=== PATIENT | male | born 1940 | race Caucasian/White ===

== ENCOUNTER 2020-06-04 12:39 | Emergency (ER) | payer MEDICARE, OTHER, SELFPAY ==
[2020-06-04] VITALS (40 sets, daily range): BP systolic 108–152; BP diastolic 69–109; PULSE 99–134; RESP 12–16; TEMP 37; O2SAT 93–109; BMI 32.0
--- NOTE | 2020-06-04 13:00 | PC.NURSE ---
patient has a history of anesthesia related mental status changes. On may 18 he had surgery on his left elbow and wrist under general anesthesia. He emerged from anesthesia and had acute hullucinations and confusion. He also experiences generalized weakness. He was hospitalized in [facility] for this from may 25 until this last monday. today he was sent to us from [facility] because his dr that performed the procedure recommended that he come to the ED and get checked out for a DVT in left arm. he has a history of stage 3 kyndey failure, chronic atrial fibrillation
[2020-06-04 13:10] LABS: Add Manual Diff / Slide Review NO; Basophils Absolute Auto 100 /uL (0-100); Basophils Percent Auto 0.6 % (0-2); Eosinophils Absolute Auto 0 /uL (0-450); Eosinophils Percent Auto 0.1 % (2-4); Hematocrit 36.4 % (41-53); Hemoglobin 11.9 g/dL (13.5-17.5); Lymphocytes Absolute Auto 500 /uL (1100-4500); Lymphocytes Percent Auto 3.5 % (25-40); Mean Corpuscular HGB Conc 32.6 % (30-36); Mean Corpuscular Hemoglobin 33.2 PG (26-34); Mean Corpuscular Volume 101.6 fL (80-100); Monocytes Absolute Auto 900 /uL (0-900); Monocytes Percent Auto 6.4 % (3-14); Neutrophils Absolute Auto 12700 /uL (1500-7000); Neutrophils Percent Auto 89.4 % (50-75); Platelet Count 173 X10^3/uL (150-400); Red Blood Cell Count 3.59 X10^6/uL (4.5-5.9); Red Cell Distribution Width 17.2 % (11.6-14.8); White Blood Cell Count 14.2 X10^3/uL (4.5-11.0)
[2020-06-04 13:19] LABS: Alanine Aminotransferase 35 IU/L (<50); Albumin 3.6 g/dL (3.5-5.0); Albumin Globulin Ratio 1.2 (1.0-2.8); Alkaline Phosphatase 59 U/L (38-126); Aspartate Aminotransferase 26 IU/L (17-59); BUN Creatinine Ratio 24.5 (6-22); Bilirubin Total 1.4 mg/dL (0.2-1.3); Blood Urea Nitrogen 25 mg/dL (9-20); Calcium 9.3 mg/dL (8.4-10.2); Carbon Dioxide 25 mmol/L (22-32); Chloride 98 mmol/L (98-107); Estimated Glomerular Filt Rate > 60.0 mL/min (>60); Glucose 186 mg/dL (80-110); HEMOLYSIS < 15 (0-50); Potassium 4.7 mmol/L (3.4-5.1); Sodium 130 mmol/L (137-145); Total Protein 6.6 g/dL (6.3-8.2)
--- NOTE | 2020-06-04 13:32 | ED_ITS ---
HPI - Extremity Injury (Upper) General Chief Complaint: Extremity Injury, Upper Stated Complaint: Possible DVT Left arm/Increased confusion Time Seen by Provider: 06/04/20 13:31 Source: EMS Mode of arrival: Wheelchair Limitations: altered mental status History of Present Illness HPI narrative: The patient arrives by EMS from [facility]. There is concerned about redness and swelling to the left arm. He underwent left cubital tunnel, and carpal tunnel surgery about 1 month ago. After discharge he was matthieu dmitted with hallucinations. He was it [facility] for extended period time, before being transferred to [facility]. He is currently being treated with Augmentin for aspiration pneumonia. He has the pain and swelling left arm. He does not have chest pain. He has mild dyspnea. He does not have a productive cough. He denies chronic lung problems. He says he does have heart problems. The pain and swelling left upper arm, he tells me has been present since he was postop. The nurse at the [facility] noted warmth in the arm. There is ongoing edema. She was concerned about DVT. It is noted is tachycardic. He has a history of AFib. Related Data Allergies Allergy/AdvReac Type Severity Reaction Status Date / Time general an AdvReac Uncoded 06/04/20 14:08 Review of Systems Constitutional Constitutional: Denies chills, Reports fatigue, Denies fever(s) and Denies headache(s) ENT Ears, Nose, Mouth, and Throat: Denies dizziness and Denies headache(s) Cardiovascular Cardiovascular: Denies chest pain and Reports rapid heart rate Respiratory Respiratory: Denies cough Gastrointestinal Gastrointestinal: Denies abdominal pain, Denies change in bowel habits, Denies diarrhea, Denies nausea and Denies vomiting Musculoskeletal Comments: Left arm pain and swelling. See HPI. Neurologic Neurologic: Reports confusion, Denies dizziness and Denies headache(s) Psychiatric Psychiatric: Reports confusion Comments: The patient is a poor historian. No additional history or RS information could be obtained. Endocrine Endocrine: Reports fatigue Patient History Medical History (Updated 06/04/20 @ 19:09 by Beau Duncan MD) Atrial fibrillation Surgical History (Updated 06/04/20 @ 19:09 by Beau Duncan MD) H/O elbow surgery History of carpal tunnel surgery of left wrist Social History Smoking Status: Former smoker Smoking Status: Former smoker tobacco type: cigarettes alcohol intake frequency: holidays/special occasions only Substance Use Type: does not use Exam Initial Vital Signs Initial Vital Signs: Vital Signs Temperature 98.6 F 06/04/20 12:47 Pulse Rate 109 H 06/04/20 12:47 Respiratory Rate 14 06/04/20 12:47 Blood Pressure 120/75 06/04/20 12:47 Pulse Oximetry 109 H 06/04/20 12:47 Const General: cooperative, disheveled and frail appearing Orientation: Orientation (Oriented to person and place.) [facility] Head: normocephalic and atraumatic Mouth: oral mucosae normal Eyes General: appearance normal, both eyes and all related structures Eyelids: eyelids normal Conjunctivae: conjunctivae normal Sclera: sclerae normal Pupils: PERRL EOM: EOM intact bilaterally Neck Neck: No JVD Resp Effort & Inspection: normal respiratory effort and able to speak in complete sentences Auscultation: clear to auscultation bilaterally, no rales, no rhonchi and no wheezes Cardio Other: Tachycardic. Irregular. Normal S1-S2. No murmur. GI Inspection: non-distended Palpation: soft, no hepatosplenomegaly, No guarding, No pulsatile mass and No tender Auscultation: normal bowel sounds Back/Spine/Pelvis Back: No back tenderness Skin Other: Pallor. No rashes. Neuro Other: No motor doses. Extrem Other: Significant edema to the left upper arm. Decreased motion the left shoulder and left elbow, suggesting a contracture. Full range of motion left wrist. Atrophy in the left hand. The left radial pulse is normal. Psych Appearance: disheveled Speech and Movement: slowed movement Course Course Course Narrative: The patient was given Cardizem and metoprolol for his AFib. Is unclear if he took his sotalol earlier today. His heart rate in the 90s at discharge. He has no dyspnea, little cough. He is on Augmentin for pneumonia. The left arm is concerning for contracture at the elbow. I discussed the situation with his , she should contact his surgeon regarding the contracture. There is no evidence of DVT on ultrasound. Orders Ordered: ED Orders 06/04/20 12:40 CMP [Comprehensive Metabolic Panel] Stat Complete Blood Count AUTO DIFF Stat Procalcitonin Stat 06/04/20 12:45 D Dimer Stat 06/04/20 13:58 Lactate (Lactic Acid) Stat 06/04/20 14:04 US periph venous up extrem lt Stat XR chest 1V Stat Discontinued Medications Diltiazem HCl (Diltiazem 5 Mg/Ml Sdv) 5 mg IV NOW ONE Stop: 06/04/20 17:55 Last Admin: 06/04/20 17:58 Dose: 5 mg Documented by: VALENTIN Metoprolol Tartrate (Metoprolol Ir 25 Mg Tablet) 25 mg PO NOW ONE Stop: 06/04/20 17:16 Last Admin: 06/04/20 17:19 Dose: 25 mg Documented by: VALENTIN Morphine Sulfate (Morphine 4 Mg/Ml Inj) 2 mg IV NOW ONE Stop: 06/04/20 14:03 Last Admin: 06/04/20 14:09 Dose: 2 mg Documented by: VALENTIN Vital Signs Vital signs: Vital Signs - 8 hr 06/04/20 12:47 06/04/20 12:53 06/04/20 13:00 Temperature 98.6 F Pulse Rate 109 H 123 H 114 H Respiratory Rate 14 Blood Pressure 120/75 108/78 Pulse Oximetry 109 H 96 96 06/04/20 13:30 06/04/20 13:40 06/04/20 13:50 Temperature Pulse Rate 115 H 120 H 115 H Respiratory Rate Blood Pressure 132/84 134/80 135/77 Pulse Oximetry 97 97 97 06/04/20 14:00 06/04/20 14:10 06/04/20 14:30 Temperature Pulse Rate 115 H 113 H 122 H Respiratory Rate Blood Pressure 142/69 H 136/73 Pulse Oximetry 97 98 06/04/20 15:00 06/04/20 15:30 06/04/20 15:33 Temperature Pulse Rate 126 H 123 H 123 H Respiratory Rate Blood Pressure 133/73 Pulse Oximetry 99 99 06/04/20 15:40 06/04/20 15:50 06/04/20 16:00 Temperature Pulse Rate 134 H 127 H 124 H Respiratory Rate Blood Pressure 138/77 129/104 H 122/100 H Pulse Oximetry 99 99 99 06/04/20 16:10 06/04/20 16:20 06/04/20 16:30 Temperature Pulse Rate 126 H 126 H 126 H Respiratory Rate Blood Pressure 127/94 H 121/96 H 131/105 H Pulse Oximetry 99 99 98 06/04/20 16:40 06/04/20 17:00 06/04/20 17:10 Temperature Pulse Rate 128 H 124 H 124 H Respiratory Rate Blood Pressure 126/109 H 124/86 135/92 H Pulse Oximetry 98 100 100 06/04/20 17:20 06/04/20 17:30 06/04/20 17:40 Temperature Pulse Rate 120 H 118 H 120 H Respiratory Rate Blood Pressure 129/93 H 120/94 H 152/98 H Pulse Oximetry 100 06/04/20 17:50 06/04/20 17:58 06/04/20 18:00 Temperature Pulse Rate 124 H 125 H 121 H Respiratory Rate Blood Pressure 118/83 118/83 124/95 H Pulse Oximetry 94 06/04/20 18:10 06/04/20 18:18 06/04/20 18:20 Temperature Pulse Rate 99 H 101 H Respiratory Rate 12 Blood Pressure 137/90 137/90 131/95 H Pulse Oximetry 94 93 06/04/20 18:30 06/04/20 18:50 06/04/20 19:00 Temperature Pulse Rate 107 H 101 H 102 H Respiratory Rate Blood Pressure 129/105 H 132/96 H 121/95 H Pulse Oximetry 93 94 93 MDM - Extremity Injury (Upper) Lab Data Result diagrams: 06/04/20 12:40 06/04/20 12:40 Labs: Lab Results 06/04/20 06/04/20 06/04/20 Range/Units 12:40 12:40 12:40 WBC 14.2 H (4.5-11.0) X10^3/uL RBC 3.59 L (4.5-5.9) X10^6/uL Hgb 11.9 L (13.5-17.5) g/dL Hct 36.4 L (41-53) % MCV 101.6 H (80-100) fL MCH 33.2 (26-34) PG MCHC 32.6 (30-36) % RDW 17.2 H (11.6-14.8) % Plt Count 173 (150-400) X10^3/uL Neut % (Auto) 89.4 H (50-75) % Lymph % (Auto) 3.5 L (25-40) % [place] % (Auto) 6.4 (3-14) % Eos % (Auto) 0.1 L (2-4) % Baso % (Auto) 0.6 (0-2) % Neut # (Auto) 16050 H (4553-3373) /uL Lymph # (Auto) 500 L (3761-3711) /uL [place] # (Auto) 900 (0-900) /uL Eos # (Auto) 0 (0-450) /uL Baso # (Auto) 100 (0-100) /uL D-Dimer (<230) ng/mL Sodium 130 L (137-145) mmol/L Potassium 4.7 (3.4-5.1) mmol/L Chloride 98 (98-107) mmol/L Carbon Dioxide 25 (22-32) mmol/L BUN 25 H (9-20) mg/dL Creatinine 1.02 (0.66-1.25) mg/dL Estimated GFR > 60.0 (>60) mL/min BUN/Creatinine Ratio 24.5 H (6-22) Glucose 186 H (80-110) mg/dL Lactate (0.7-2.1) mmol/L Calcium 9.3 (8.4-10.2) mg/dL Total Bilirubin 1.4 H (0.2-1.3) mg/dL AST 26 (17-59) IU/L ALT 35 (<50) IU/L Alkaline Phosphatase 59 (38-126) U/L Total Protein 6.6 (6.3-8.2) g/dL Albumin 3.6 (3.5-5.0) g/dL Globulin 3.0 (1.7-4.1) g/dL Albumin/Globulin Ratio 1.2 (1.0-2.8) Procalcitonin 0.44 (<0.5) ng/mL 06/04/20 06/04/20 Range/Units 12:45 13:58 WBC (4.5-11.0) X10^3/uL RBC (4.5-5.9) X10^6/uL Hgb (13.5-17.5) g/dL Hct (41-53) % MCV (80-100) fL MCH (26-34) PG MCHC (30-36) % RDW (11.6-14.8) % Plt Count (150-400) X10^3/uL Neut % (Auto) (50-75) % Lymph % (Auto) (25-40) % Assumption % (Auto) (3-14) % Eos % (Auto) (2-4) % Baso % (Auto) (0-2) % Neut # (Auto) (9538-8359) /uL Lymph # (Auto) (5558-4232) /uL Assumption # (Auto) (0-900) /uL Eos # (Auto) (0-450) /uL Baso # (Auto) (0-100) /uL D-Dimer 817 H (<230) ng/mL Sodium (137-145) mmol/L Potassium (3.4-5.1) mmol/L Chloride (98-107) mmol/L Carbon Dioxide (22-32) mmol/L BUN (9-20) mg/dL Creatinine (0.66-1.25) mg/dL Estimated GFR (>60) mL/min BUN/Creatinine Ratio (6-22) Glucose (80-110) mg/dL Lactate 1.2 (0.7-2.1) mmol/L Calcium (8.4-10.2) mg/dL Total Bilirubin (0.2-1.3) mg/dL AST (17-59) IU/L ALT (<50) IU/L Alkaline Phosphatase (38-126) U/L Total Protein (6.3-8.2) g/dL Albumin (3.5-5.0) g/dL Globulin (1.7-4.1) g/dL Albumin/Globulin Ratio (1.0-2.8) Procalcitonin (<0.5) ng/mL Imaging Data Left upper extremity ultrasound: Radiologist's Impression: [address] [id number] ReportSigned Patient: Teresa Phillips#: [id number]: 8Acct:[id number]/Sex: 80 / MDate of Service: 06/04/20Loc: EDAccession Number: [id number] Procedure: US periph venous up extrem lt Ordering Provider: Beau Duncan MD PROCEDURE: US PERIPH VENOUS UP EXTREM LT INDICATIONS: EDEMA TECHNIQUE: Real-time imaging, as well as color and pulse Doppler interrogation, was performed of the left upper extremity deep veins from the inferior neck to the antecubital fossa. COMPARISON: None. FINDINGS: The internal jugular vein, visualized portions of the subclavian vein, axillary, and brachial veins are free of intraluminal thrombus. Where physically possible, the veins are normally compressible. Color and pulse Doppler demonstrate normal intraluminal flow, with expected phasicity and pulsatility. Additional scanning of the cephalic and basilic veins of the superficial system demonstrate normal compressibility, without thrombus. IMPRESSION: No sonographic evidence of deep VT in the left upper extremity. Dictated by: Naun López M.D. on 06/04/2020 at 14:43 Approved by: Naun López M.D. on 06/04/2020 at 14:43 Chest x-ray: Radiologist's Impression: [address] [id number] ReportSigned Patient: Jose Ramon PhillipsMR#: [id number]: 8Acct:[id number]/Sex: 80 / MDate of Service: 06/04/20Loc: EDAccession Number: [id number] Procedure: XR chest 1V Ordering Provider: Beau Duncan MD PROCEDURE: XR CHEST 1V INDICATIONS: Dyspnea. Recent dx of pneumonia TECHNIQUE: One view of the chest was acquired. COMPARISON: None. FINDINGS: Surgical changes and devices: None. Lungs and pleura: Lungs are clear. No pleural effusions or pneumothorax. Mediastinum: Mediastinal contours appear normal. Heart size is normal. Aorta is tortuous. Bones and chest wall: No suspicious bony lesions. Overlying soft tissues appear unremarkable. IMPRESSION: 1. No acute cardiopulmonary disease. 2. There is a density projecting to the left aspect of the spine above the left hemidiaphragm, which may be related to the silhouette from the tortuous aorta. A lateral view of chest or chest CT is recommended. Dictated by: Irlanda Sheehan M.D. on 06/04/2020 at 14:22 Approved by: Irlanda Sheehan M.D. on 06/04/2020 at 14:24 ECG Data Attestation: I personally reviewed and interpreted this ECG as follows: (AFib with RVR, rate 119 beats per minute. Right axis. Low voltage. Nonspecific ST T wave changes.) Discharge Plan Departure Patient Disposition: Home Clinical Impression: Contracture of elbow, Atrial fibrillation, History of carpal tunnel surgery of left wrist, H/O elbow surgery Instructions: Contractures Activity Restrictions/Additional Instructions: Continue with current medications. He seems to be developing a contracture to his left elbow. You should call his surgeon and discuss the swelling and stiffness of the left arm. You must be certain that your taking your regular medications daily. Return here as needed. Referrals: Denise Ochoa MD [Primary Care Provider] -
[2020-06-04 14:04] LABS: D Dimer 817 ng/mL (<230)
--- NOTE | 2020-06-04 14:04 | DI.RAD.S_ITS ---
PROCEDURE: XR CHEST 1V INDICATIONS: Dyspnea. Recent dx of pneumonia TECHNIQUE: One view of the chest was acquired. COMPARISON: None. FINDINGS: Surgical changes and devices: None. Lungs and pleura: Lungs are clear. No pleural effusions or pneumothorax. Mediastinum: Mediastinal contours appear normal. Heart size is normal. Aorta is tortuous. Bones and chest wall: No suspicious bony lesions. Overlying soft tissues appear unremarkable. IMPRESSION: 1. No acute cardiopulmonary disease. 2. There is a density projecting to the left aspect of the spine above the left hemidiaphragm, which may be related to the silhouette from the tortuous aorta. A lateral view of chest or chest CT is recommended. Dictated by: Irlanda Sheehan M.D. on 06/04/2020 at 14:22 Approved by: Irlanda Sheehan M.D. on 06/04/2020 at 14:24
--- NOTE | 2020-06-04 14:04 | DI.US.S_ITS ---
PROCEDURE: US PERIPH VENOUS UP EXTREM LT INDICATIONS: EDEMA TECHNIQUE: Real-time imaging, as well as color and pulse Doppler interrogation, was performed of the left upper extremity deep veins from the inferior neck to the antecubital fossa. COMPARISON: None. FINDINGS: The internal jugular vein, visualized portions of the subclavian vein, axillary, and brachial veins are free of intraluminal thrombus. Where physically possible, the veins are normally compressible. Color and pulse Doppler demonstrate normal intraluminal flow, with expected phasicity and pulsatility. Additional scanning of the cephalic and basilic veins of the superficial system demonstrate normal compressibility, without thrombus. IMPRESSION: No sonographic evidence of deep VT in the left upper extremity. Dictated by: Naun Lópze M.D. on 06/04/2020 at 14:43 Approved by: Naun López M.D. on 06/04/2020 at 14:43
[2020-06-04] MEDS: MORPHINE 4 MG/ML INJ 2 MG IV (14:09)
[2020-06-04 14:16] LABS: Procalcitonin 0.44 ng/mL (<0.5)
[2020-06-04 14:20] LABS: Lactate (Lactic Acid) 1.2 mmol/L (0.7-2.1)
[2020-06-04] MEDS: METOPROLOL IR 25 MG TABLET PO (17:19)
[2020-06-04] MEDS: dilTIAZem 5 MG/ML SDV IV (17:58)
--- NOTE | 2020-06-04 20:14 | PC.NURSE ---
an attempt was made to contact [facility] for transport many times and there was no contact. I contacted [facility] and let them know about it and they sent a nurse to [facility] to let them know he was ready for discharge.
[2020-06-04] MEDS: HYDROCODONE/ACET 5/325 PREPACK 1 BOTTLE MISC (20:35)
== END 2020-06-04 20:39 | disposition home or self-care (01) ==
PROVIDERS: Emergency Provider Emergency Medicine; PCP Internal Medicine Cardiovascular Disease
DX: M24.521 Contracture, right elbow (principal); I48.91 Unspecified atrial fibrillation
CPT/HCPCS: 36415; 71045; 80053; 83605; 84145; 85025; 85379; 93005; 93971; 96374; 96375; 99284; J2270

== ENCOUNTER → 2020-06-15 13:48 | Outpatient (CLI) | payer MEDICARE, OTHER, SELFPAY ==
--- NOTE | 2020-06-15 13:53 | DI.RAD.S_ITS ---
PROCEDURE: XR CHEST 2V INDICATIONS: pneuometis TECHNIQUE: 2 views of the chest were acquired. COMPARISON: [facility], CR, XR CHEST 1V, 06/04/2020, 14:10. FINDINGS: Surgical changes and devices: None. Lungs and pleura: Lungs are clear. No pleural effusions or pneumothorax. Mediastinum: Mediastinal contours are normal. Heart size is normal. Bones and chest wall: No suspicious bony abnormalities. Soft tissues appear unremarkable. IMPRESSION: Reduced inspiratory volume, no pneumonia seen. Dictated by: Huang Jacobsen M.D. on 06/15/2020 at 14:23 Approved by: Huang Jacobsen M.D. on 06/15/2020 at 14:23
== END ==
PROVIDERS: PCP Internal Medicine Cardiovascular Disease; Referring Provider Nurse Practitioner; Visit Provider Nurse Practitioner
DX: J18.9 Pneumonia, unspecified organism
CPT/HCPCS: 71046

== ENCOUNTER → 2020-06-16 11:40 | Outpatient (ROUT) | payer MEDICARE, SELFPAY ==
[2020-06-16 11:53] LABS: Add Manual Diff / Slide Review NO; Basophils Absolute Auto 0 /uL (0-100); Basophils Percent Auto 0.1 % (0-2); Eosinophils Absolute Auto 100 /uL (0-450); Eosinophils Percent Auto 0.4 % (2-4); Hematocrit 39.3 % (41-53); Hemoglobin 13.2 g/dL (13.5-17.5); Lymphocytes Absolute Auto 700 /uL (1100-4500); Mean Corpuscular HGB Conc 33.6 % (30-36); Mean Corpuscular Hemoglobin 32.6 PG (26-34); Mean Corpuscular Volume 97.2 fL (80-100); Monocytes Absolute Auto 600 /uL (0-900); Monocytes Percent Auto 3.8 % (3-14); Neutrophils Absolute Auto 13500 /uL (1500-7000); Neutrophils Percent Auto 90.7 % (50-75); Platelet Count 262 X10^3/uL (150-400); Red Blood Cell Count 4.04 X10^6/uL (4.5-5.9); Red Cell Distribution Width 17.6 % (11.6-14.8); White Blood Cell Count 14.9 X10^3/uL (4.5-11.0)
[2020-06-16 12:14] LABS: Alanine Aminotransferase 258 IU/L (<50); Albumin 2.8 g/dL (3.5-5.0); Albumin Globulin Ratio 1.1 (1.0-2.8); Alkaline Phosphatase 375 U/L (38-126); Aspartate Aminotransferase 274 IU/L (17-59); Bilirubin Total 8.3 mg/dL (0.2-1.3); Blood Urea Nitrogen 100 mg/dL (9-20); Calcium 8.6 mg/dL (8.4-10.2); Carbon Dioxide 38 mmol/L (22-32); Estimated Glomerular Filt Rate 45.9 mL/min (>60); Globulin 2.6 g/dL (1.7-4.1); Glucose 231 mg/dL (80-110); HEMOLYSIS 30 (0-50); Sodium 121 mmol/L (137-145); Total Protein 5.4 g/dL (6.3-8.2)
[2020-06-16 12:44] LABS: Chloride 70 mmol/L (98-107)
[2020-06-16 12:45] LABS: Potassium 2.7 mmol/L (3.4-5.1)
== END ==
PROVIDERS: PCP Internal Medicine Cardiovascular Disease; Visit Provider Nurse Practitioner
DX: R17 Unspecified jaundice (principal); I48.91 Unspecified atrial fibrillation; E11.9 Type 2 diabetes mellitus without complications; J69.0 Pneumonitis due to inhalation of food and vomit
CPT/HCPCS: 80053; 85025

== ENCOUNTER → 2020-06-16 15:00 | Outpatient (CLI) | payer MEDICARE, OTHER, SELFPAY ==
--- NOTE | 2020-06-16 15:11 | DI.RAD.S_ITS ---
PROCEDURE: XR CHEST 2V INDICATIONS: PNENMONITIS DUE TO INHALATION OF FOOD TECHNIQUE: 2 views of the chest were acquired. COMPARISON: [facility], CR, XR CHEST 2V, 06/15/2020, 13:53. [facility], CR, XR CHEST 1V, 06/04/2020, 14:10. FINDINGS: Surgical changes and devices: None. Lungs and pleura: Lungs are abnormal, with bilateral pneumonia reportedly due to aspiration.. No pleural effusions or pneumothorax. Mediastinum: Mediastinal contours are normal. Heart size is normal. Bones and chest wall: No suspicious bony abnormalities. Soft tissues appear unremarkable. IMPRESSION: No pleural effusion found, bilateral patchy pneumonia. Reported aspiration etiology. By plain film appearance viral/atypical pneumonia would be an alternative etiology to consider. Dictated by: Huang Jacobsen M.D. on 06/16/2020 at 15:36 Approved by: Huang Jacobsen M.D. on 06/16/2020 at 15:37
== END ==
PROVIDERS: PCP Internal Medicine Cardiovascular Disease; Referring Provider Nurse Practitioner; Visit Provider Nurse Practitioner
DX: J69.0 Pneumonitis due to inhalation of food and vomit (principal); I48.0 Paroxysmal atrial fibrillation; R53.1 Weakness; E87.1 Hypo-osmolality and hyponatremia; I95.9 Hypotension, unspecified; I42.9 Cardiomyopathy, unspecified; R17 Unspecified jaundice; E11.9 Type 2 diabetes mellitus without complications
CPT/HCPCS: 71046; 80053; 85025

== ENCOUNTER → 2020-06-18 14:48 | Outpatient (ROUT) | payer MEDICARE, OTHER, SELFPAY ==
[2020-06-18 15:34] LABS: Calcium 8.9 mg/dL (8.4-10.2); Carbon Dioxide 39 mmol/L (22-32); Estimated Glomerular Filt Rate 43.1 mL/min (>60); Glucose 260 mg/dL (80-110); HEMOLYSIS < 15 (0-50); Sodium 124 mmol/L (137-145)
[2020-06-18 15:38] LABS: Chloride 72 mmol/L (98-107); Potassium 2.6 mmol/L (3.4-5.1)
[2020-06-18 15:39] LABS: Blood Urea Nitrogen 110 mg/dL (9-20)
== END ==
PROVIDERS: PCP Internal Medicine Cardiovascular Disease; Visit Provider Nurse Practitioner
DX: E87.6 Hypokalemia (principal)
CPT/HCPCS: 80048